=== PATIENT | male | born 1995 | race Caucasian/White ===

== ENCOUNTER 2024-07-17 10:15 | Emergency (ER) | payer BC, MEDICAID ==
[~2024-07-17] VITALS: Ht 175.3 cm; Wt 77.3 kg
[2024-07-17 10:35] VITALS: BP 134/98; PULSE 73; RESP 18; TEMP 98.4; O2SAT 99
[2024-07-17 10:55] VITALS: O2SAT 99
[2024-07-17] MEDS ORDERED: AMOX-1230 PO (12:37)
== END 2024-07-17 12:44 | disposition home or self-care (01) ==
LOC: MED 10:15
DX: H61.22 Impacted cerumen, left ear (principal); K04.7 Periapical abscess without sinus; J45.909 Unspecified asthma, uncomplicated
CPT/HCPCS: 99283